=== PATIENT | female | born 1930 | race Two or more races ===

== ENCOUNTER 2017-01-22 10:36 | Outpatient (CLI) | payer MEDICARE ==
--- NOTE | 2017-01-22 13:11 | Mammography Report ---
DIGITAL DIAGNOSTIC BILATERAL MAMMOGRAM: 01/22/2017 CLINICAL INDICATION: History of right breast cancer status post lumpectomy and radiation therapy. TECHNIQUE: Bilateral CC and MLO, right true lateral and spot magnification views. COMPARISON: 02/02/2016, 01/05/2016, 12/15/2011, 12/07/2010, 04/07/2009, 03/17/2008, 03/04/2008. FINDINGS: The breasts again demonstrate heterogeneously dense fibroglandular parenchyma bilaterally. Postoperative and post-treatment changes are present in the right breast. Coarse and punctate, typ ically benign calcifications are present. No suspicious masses, clustered microcalcifications, or re gions of architectural distortion are identified. IMPRESSION: BENIGN FINDINGS. RECOMMENDATION: Routine annual screening unless otherwise clinically indicated. BIRADS CATEGORY 2 - BENIGN FINDINGS. STANDARD QUALIFYING STATEMENTS 1. This examination was reviewed with the aid of Computer-Aided Detection (CAD). 2. A negative or benign imaging report should not delay biopsy if clinically suspicious findings are present. Consider surgical consultation if warranted. More than 5% of cancers are not identified by i maging. 3. Dense breasts may obscure an underlying neoplasm. JOB #: [id number] EXT JOB #:[id number]
== END 2017-01-22 10:37 | disposition home or self-care (01) ==
LOC: DI 10:36
PROVIDERS: ATTEND Internal Medicine Hematology & Oncology
DX: C50.811 Malignant neoplasm of overlapping sites of right female breast (principal)
CPT/HCPCS: 77066

== ENCOUNTER 2017-08-15 11:56 | Outpatient (CLI) | payer MEDICARE ==
--- NOTE | 2017-08-16 18:55 | Mammography Report ---
DATE OF SERVICE: 08/15/2017 DIGITAL DIAGNOSTIC RIGHT MAMMOGRAM: 08/15/2017 CLINICAL INDICATION: Follow up status post lumpectomy and radiation therapy for right breast cancer. COMPARISON: 01/22/2017, 02/02/2016, 01/05/2016, 12/15/2011, 12/07/2010. TECHNIQUE: Right CC, MLO, true lateral, spot magnification views. FINDINGS The right breast again demonstrates heterogeneously dense fibroglandular parenchyma. Punctate, typically benign calcifications are present. Postoperative and posttreatment changes are noted in the right outer central breast. No suspicious masses, clustered microcalcifications, or regions of architectural distortion are identified. IMPRESSION: Probable benign postoperative and posttreatment changes. RECOMMENDATIONS: Diagnostic bilateral mammogram in 6 months. BIRADS category 3 - Probable benign findings. STANDARD QUALIFYING STATEMENTS 1. This examination was reviewed with the aid of Computed-Aided Detection (CAD) . 2. A negative or benign imaging report should not delay biopsy if clinically suspicious findings are present. Consider surgical consultation if warranted. More than 5% of cancers are not identified by imaging. 3. Dense breasts may obscure an underlying neoplasm. TD: 08/15/2017 18:30 MTDBri
== END 2017-08-15 11:57 | disposition home or self-care (01) ==
LOC: DI 11:56
PROVIDERS: ATTEND Physician Assistant
DX: Z85.3 Personal history of malignant neoplasm of breast (principal)

== ENCOUNTER 2018-07-03 13:18 | Outpatient (CLI) | payer MEDICARE ==
--- NOTE | 2018-07-03 16:29 | Mammography Report ---
Reason: MALIGNANT NEOPLASM OF UNSP SITE OF RIGHT FEMALE BR Procedure Date: 07/03/2018 Accession Number: [id number] / [id number] Procedure: HUGO - Diagnostic Dig Bilat CPT Code: FULL RESULT: EXAM: Diagnostic Dig Bilat DATE: 07/03/2018 2:59 PM CLINICAL HISTORY: Post lumpectomy surveillance right breast screening left breast. Prior history of treated right breast cancer in 2016. TECHNIQUE: Bilateral CC and MLO views were obtained. COMPARISON: 08/15/2017 through 01/05/2016. FINDINGS: The breasts demonstrate heterogeneously dense fibroglandular parenchyma bilaterally. Right breast: There are stable operative changes status post lumpectomy from the upper central breast. There is stable overlying skin deformity. There are no suspicious masses, calcifications or areas of nonoperative distortion. Left breast: There are no suspicious masses, calcifications or areas of distortion. IMPRESSION: Benign findings RECOMMENDATION: Diagnostic right breast mammogram in 1 year for post lumpectomy surveillance to coincide with contralateral screening. BI-RADS CATEGORY 2: Benign findings STANDARD QUALIFYING STATEMENTS: 1. This examination was not reviewed with the aid of Computer-Aided Detection (CAD). 2. A negative or benign imaging report should not preclude biopsy if clinically suspicious findings are present. 3. Dense breasts may obscure an underlying neoplasm. 4. This examination was reviewed with the aid of 3D breast imaging (tomosynthesis).
== END 2018-07-03 13:19 | disposition home or self-care (01) ==
LOC: DI 13:18
PROVIDERS: ATTEND Physician Assistant
DX: Z08 Encounter for follow-up examination after completed treatment for malignant neoplasm (principal); Z85.3 Personal history of malignant neoplasm of breast
CPT/HCPCS: 77066

== ENCOUNTER 2018-09-19 14:11 | Outpatient (CLI) | payer MEDICARE ==
--- NOTE | 2018-09-20 09:54 | XRAY Report ---
Reason: PAIN IN RIGHT HIP Procedure Date: 09/19/2018 Accession Number: [id number] / [id number] Procedure: XR - Hips 2V BILAT CPT Code: FULL RESULT: EXAM: BILATERAL HIP RADIOGRAPHY EXAM DATE: 09/19/2018 03:49 PM. CLINICAL HISTORY: Pain in right hip. COMPARISON: XR HIP UNILAT MIN 2 VIEW 09/17/2008 9:55 AM. TECHNIQUE: AP pelvis and 1 view each. FINDINGS: Bones: Normal. No fractures or bone lesion. Degenerative changes are seen about the pubic symphysis. Right Hip: No dislocation. The hip joint space is moderately narrowed, increased compared to 2008. Left Hip: No dislocation. The hip joint space is moderately narrowed, progressed compared to 2008. Soft Tissues: Normal. No soft tissue swelling. IMPRESSION: Moderate bilateral hip joint space narrowing, progression from 2008. RADIA
== END 2018-09-19 14:12 | disposition home or self-care (01) ==
LOC: DI 14:11
PROVIDERS: ATTEND Internal Medicine
DX: M16.0 Bilateral primary osteoarthritis of hip (principal)
CPT/HCPCS: 73521

== ENCOUNTER 2019-07-09 10:17 | Outpatient (CLI) | payer MEDICARE ==
--- NOTE | 2019-07-09 14:57 | Mammography Report ---
Reason: RT BREAST CA Procedure Date: 07/09/2019 Accession Number: [id number] / [id number] Procedure: HUGO - Diagnostic Dig Bilat CPT Code: Final Report FULL RESULT: EXAM: Diagnostic Dig Bilat DATE: 07/09/2019 11:22 AM CLINICAL HISTORY: Diagnostic examination. Personal history of right breast cancer status post lumpectomy in October 2015. TECHNIQUE: (B) - Bilateral CC and MLO views were obtained. COMPARISON: 07/03/2018 through 02/02/2016. PARENCHYMAL PATTERN: (D) - The breast(s) demonstrate(s) heterogeneously dense fibroglandular parenchyma. FINDINGS: Probably benign right breast postsurgical changes are once again demonstrated without concerning interval change. There are no suspicious masses, calcifications, or areas of distortion. IMPRESSION: Probably Benign. BI-RADS category 3. RECOMMENDATION: (ANNUAL) - Recommend routine annual screening mammography. BI-RADS CATEGORY: (3) - Probably Benign. STANDARD QUALIFYING STATEMENTS: 1. This examination was not reviewed with the aid of Computer-Aided Detection (CAD). 2. A negative or benign imaging report should not preclude biopsy if clinically suspicious findings are present. 3. Dense breasts may obscure an underlying neoplasm. 4. This examination was reviewed with the aid of 3D breast imaging (tomosynthesis).
== END 2019-07-09 10:18 | disposition home or self-care (01) ==
LOC: DI 10:17
PROVIDERS: ATTEND Internal Medicine
DX: C50.911 Malignant neoplasm of unspecified site of right female breast (principal)
CPT/HCPCS: 77066

== ENCOUNTER 2019-07-29 11:38 | Outpatient (CLI) | payer MEDICARE ==
--- NOTE | 2019-07-30 08:59 | XRAY Report ---
Reason: R HIP Procedure Date: 07/29/2019 Accession Number: [id number] / [id number] Procedure: XRS - Hip w/Pelvis 2-3V RT CPT Code: Final Report FULL RESULT: EXAM: RIGHT HIP RADIOGRAPHY EXAM DATE: 07/29/2019 12:10 PM. CLINICAL HISTORY: Fall 1 week ago with right hip pain. COMPARISON: HIP BILAT 09/19/2018 3:48 PM. TECHNIQUE: 2 views. FINDINGS: Bones: No fracture or aggressive osseous lesion detected. Joints: There are bilateral degenerative changes of the femoral acetabular joint with mild joint space narrowing and marginal osteophytosis, relatively symmetric. Sacroiliac joints and pubic symphysis are within normal limits, mild degenerative changes are noted. No dislocation. Soft Tissues: Normal. No soft tissue swelling. IMPRESSION: Degenerative changes. RADIA
--- NOTE | 2019-07-30 09:00 | XRAY Report ---
Reason: RIGHT LEG AND HIP PAIN Procedure Date: 07/29/2019 Accession Number: [id number] / [id number] Procedure: XRS - Femur 2V RT CPT Code: Final Report FULL RESULT: EXAM: RIGHT FEMUR RADIOGRAPHY EXAM DATE: 07/29/2019 12:09 PM. CLINICAL HISTORY: Right leg and hip pain. COMPARISON: None. TECHNIQUE: 2 views. FINDINGS: Bones: No acute fracture is detected. Joints: Endstage degenerative changes of the visualized right knee including loose bodies. Near complete loss of joint space especially in the medial weightbearing compartment. Soft Tissues: Vascular calcifications. 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 No acute fracture. RADIA
== END 2019-07-29 11:39 | disposition home or self-care (01) ==
LOC: DI.S 11:38
PROVIDERS: ATTEND Internal Medicine
DX: C50.911 Malignant neoplasm of unspecified site of right female breast (principal); M16.0 Bilateral primary osteoarthritis of hip; M17.11 Unilateral primary osteoarthritis, right knee

== ENCOUNTER 2020-09-28 09:59 | Outpatient (CLI) | payer MEDICARE ==
--- NOTE | 2020-09-29 12:45 | Mammography Report ---
BILATERAL DIGITAL DIAGNOSTIC MAMMOGRAM 3D/2D: 09/28/2020 CLINICAL: Routine screening. Personal history of right breast cancer. Comparison is made to exams dated: 07/09/2019 mammogram, 07/03/2018 mammogram, 08/15/2017 mammogram, 01/22/2017 mammogram, 02/29/2016 breast MRI, and 02/02/2016 mammogram - [facility]. T he tissue of both breasts is heterogeneously dense. This may lower the sensitivity of mammography. There is a new benign dystrophic calcification in the right breast at 11 o'clock middle depth at the lumpectomy site. No other significant masses, calcifications, or other findings are seen in either breast. IMPRESSION: BENIGN There is no mammographic evidence of malignancy. New dystrophic calcifications at the right breast lumpectomy in the interval since June 2019 are benign. Lumpectomy site is otherwise stable. A 1 year mammogram is recommended. Exam findings were conveyed to the patient. Patient is advised to monitor for significant change. This exam was interpreted at Station ID: [id number]. NOTE: For mammograms, a report in lay terms will be sent to the patient. Approximately 15% of breast malignancies will not be visualized mammographically. In the management of a palpable breast mass, a negative mammogram must not discourage biopsy of a clinically suspicious lesion. Electronically Signed By: Mark Anthony Gray M.D. slc/:09/28/2020 11:51:41 ACR BI-RADS Category 2: Benign Finding(s) 3342F PARENCHYMAL PATTERN: (D) - The breast(s) demonstrate(s) heterogeneously dense fibroglandular erika palomo. BI-RADS CATEGORY: (2) - 2 RECOMMENDATION: (ANNUAL) - Recommend routine annual screening mammography. [id number] 1 year screening LATERALITY: (B)
== END 2020-09-28 10:00 | disposition home or self-care (01) ==
LOC: DI 09:59
PROVIDERS: ATTEND Internal Medicine
DX: Z12.39 Encounter for other screening for malignant neoplasm of breast (principal); Z08 Encounter for follow-up examination after completed treatment for malignant neoplasm; Z85.3 Personal history of malignant neoplasm of breast

== ENCOUNTER 2021-03-22 09:40 | Observation (INO) | payer MEDICARE ==
[2021-03-22] MEDS ORDERED: SODIUM CHLORIDE 0.9% 1,000 ML IV STA (10:27)
[2021-03-22 11:01] LABS: BASOPHILS % (AUTO) 0.4 %; EOSINOPHILS # (AUTO) 0.1 10^3/uL (0.0-0.7); EOSINOPHILS % (AUTO) 1.7 %; HCT - HEMATOCRIT 39.5 % (37.0-47.0); HGB - HEMOGLOBIN 13.6 g/dL (12.0-16.0); LYMPHOCYTES # (AUTO) 1.5 10^3/uL (1.5-3.5); LYMPHOCYTES % (AUTO) 20.1 %; MEAN CORPUSCULAR HGB CONC 34.4 g/dL (32.0-36.0); MEAN PLATELET VOLUME 9.6 fL (7.9-10.8); MONOCYTES # (AUTO) 0.7 10^3/uL (0.0-1.0); NEUTROPHILS % (AUTO) 67.5 %; PLT - PLATELET COUNT 293 10^3/uL (130-450); RED BLOOD COUNT 4.39 10^6/uL (4.20-5.40); RED CELL DISTRIBUTION WIDTH 12.6 % (12.0-15.0); WHITE BLOOD COUNT 7.4 x10^3/uL (4.8-10.8)
[2021-03-22 11:06] LABS: INR 1.1 (0.8-1.2); PT - PROTHROMBIN TIME 12.4 secs (9.9-12.6)
[2021-03-22 11:14] LABS: ALBUMIN 3.3 g/dL (3.2-5.5); CALCIUM 8.8 mg/dL (8.5-10.3); CREATININE 0.8 mg/dL (0.4-1.0); POTASSIUM 3.7 mmol/L (3.5-5.0); TOTAL PROTEIN 6.5 g/dL (6.7-8.2)
--- NOTE | 2021-03-22 13:43 | ED Physician Documentation ---
PD HPI GI BLEED - Stated complaint Stated Complaint: HEMATURIA - Chief complaint Chief Complaint: Abd Pain - History obtained from History obtained from: Patient, Family - Additional information Additional information: Patient comes emergency department chief complaint of bloody stools. She states this started last night and that at that time, she had the urge to defecate but mostly, noticed that a large amount of dark red blood and clots came out. Patient states this happened 2 more times overnight and that she also had an episode here in the emergency department. She states she has felt a little bit lightheaded and dizzy, but has not fainted. She denies any abdominal pain. She is not on anticoagulants. states this happened once before, a little over a year ago, and that the patient was admitted at [facility] for colonoscopy. She was found to have polyps, and patient's does not remember if they found anything else on scope. The patient has not had any trouble with GI bleeding since. She denies nausea or vomiting. No easy bruising or bleeding anywhere else. No other complaints at this time. Review of Systems Ten Systems: 10 systems reviewed and negative Constitutional: reports: Reviewed and negative Eyes: reports: Reviewed and negative Ears: reports: Reviewed and negative Nose: reports: Reviewed and negative Throat: reports: Reviewed and negative Cardiac: reports: Reviewed and negative Respiratory: reports: Reviewed and negative GI: reports: Bloody / black stool : reports: Reviewed and negative Skin: reports: Reviewed and negative Musculoskeletal: reports: Reviewed and negative Neurologic: reports: Reviewed and negative Psychiatric: reports: Reviewed and negative Endocrine: reports: Reviewed and negative Immunocompromised: reports: Reviewed and negative PD PAST MEDICAL HISTORY - Past Medical History Past Medical History: Yes Cardiovascular: Hypertension, High cholesterol Respiratory: None Endocrine/Autoimmune: Type 2 diabetes, HyPERthyroidism GI: None : None HEENT: None Psych: None Musculoskeletal: Osteoarthritis, Rheumatoid arthritis Derm: None - Past Surgical History Past Surgical History: Yes General: Colonoscopy Ortho: Carpal Tunnel surgery, 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 - Present Medications Home Medications: Ambulatory Orders Medication Instructions Recorded Confirmed Cholecalciferol (Vitamin D3) 5,000 unit PO BID 11/19/13 11/17/20 [Vitamin D3] Aspirin 81 mg PO DAILY 07/24/18 11/17/20 Atorvastatin [Lipitor] 0.5 tab ORAL DAILY 07/24/18 11/17/20 Clopidogrel [Plavix] 1 tab ORAL DAILY 07/24/18 11/17/20 Losartan [Cozaar] 2 tab ORAL DAILY 07/24/18 11/17/20 Metoprolol Tartrate 1 tab ORAL DAILY 07/24/18 11/17/20 - Allergies Allergies/Adverse Reactions: Allergies Allergy/AdvReac Type Severity Reaction Status Date / Time No Known Drug Allergies Allergy Verified 03/22/21 10:27 - Social History Does the pt smoke?: No Smoking Status: Never smoker Does the pt drink ETOH?: No Does the pt have substance abuse?: No - Immunizations Immunizations are current?: Yes - POLST Patient has POLST: No PD ED PE NORMAL - Vitals Vital signs reviewed: Yes - General General: Alert and oriented X 3, No acute distress - HEENT HEENT: Atraumatic, PERRL, EOMI, Moist mucous membranes - Neck Neck: Supple, no meningeal sign - Cardiac Cardiac: RRR, No murmur - Respiratory Respiratory: No respiratory distress, Clear bilaterally - Abdomen Abdomen: Soft, Non tender, Non distended - Rectal Rectal: Other (Gross blood; no mass or tenderness.) - Derm Derm: Warm and dry - Extremities Extremities: No deformity - Neuro Neuro: Alert and oriented X 3 - Psych Psych: Normal mood, Normal affect Results - Vitals Vitals: Vital Signs - 24 hr 03/22/21 03/22/21 10:21 14:07 Temperature 36.7 C 36.5 C Heart Rate 68 64 Respiratory 18 16 Rate Blood Pressure 131/75 H 133/91 H O2 Saturation 98 96 Oxygen O2 Source Room air - Labs Labs: Laboratory Tests 03/22/21 03/22/21 03/22/21 10:40 10:40 10:40 WBC 7.4 RBC 4.39 Hgb 13.6 Hct 39.5 MCV 90.0 MCH 31.0 MCHC 34.4 RDW 12.6 Plt Count 293 MPV 9.6 Neut # (Auto) 5.0 Lymph # (Auto) 1.5 [place] # (Auto) 0.7 Eos # (Auto) 0.1 Baso # (Auto) 0.0 Absolute Nucleated RBC 0.00 Nucleated RBC % 0.0 PT 12.4 INR 1.1 Sodium 135 Potassium 3.7 Chloride 99 L Carbon Dioxide 27 Anion Gap 9.0 BUN 20 Creatinine 0.8 Estimated GFR (MDRD) 68 L Glucose 213 H Calcium 8.8 Total Bilirubin 1.0 AST 18 ALT 17 Alkaline Phosphatase 84 Total Protein 6.5 L Albumin 3.3 Globulin 3.2 Albumin/Globulin Ratio 1.0 Lipase 27 Blood Type Antibody Screen 03/22/21 10:40 WBC RBC Hgb Hct MCV MCH MCHC RDW Plt Count MPV Neut # (Auto) Lymph # (Auto) [place] # (Auto) Eos # (Auto) Baso # (Auto) Absolute Nucleated RBC Nucleated RBC % PT INR Sodium Potassium Chloride Carbon Dioxide Anion Gap BUN Creatinine Estimated GFR (MDRD) Glucose Calcium Total Bilirubin AST ALT Alkaline Phosphatase Total Protein Albumin Globulin Albumin/Globulin Ratio Lipase Blood Type O POSITIVE Antibody Screen NEGATIVE PD MEDICAL DECISION MAKING - ED course Complexity details: reviewed old records, reviewed results, re-evaluated patient, considered differential, d/w patient, d/w family ED course: Patient was worked up with labs in the emergency department, which demonstrated a hemoglobin of 13.6. She was hemodynamically stable and without complaints of abdominal pain. I was concerned about the degree of bleeding she had had, as I was able to view both her output here in the emergency department and a picture of her bowel movement at home with the clots and copious red blood. I ordered a type and screen on the patient and spoke with Dr. Miller, the surgeon on-call. We discussed that under ideal circumstances, the patient may have access to further resources at [facility] in regard to her GI bleeding; however, given that [facility] is boarding 39 patients and has not yet been able to except the patient we have had on their waiting list for the past 18 hours, it is highly unlikely that the patient would be able to be transferred. As such, it is in her best interest to be admitted here instead for serial H&H's, transfusion if necessary, and surgical consult. I have spoke with Dr. Min, who is on-call for hospitalist service, and he has agreed to admit the patient to his service. Patient is open to transfusion if needed. Departure - Departure Disposition: ED Place in Observation Clinical Impression: Lower GI bleed Condition: Serious
[2021-03-22] MEDS ORDERED: ACETAMINOPHEN 325 MG TABLET PO PRN (14:04)
[2021-03-22] MEDS ORDERED: SODIUM CHLORIDE FLUSH 0.9% 10 ML SYRINGE IVP PRN (14:04)
[2021-03-22] MEDS ORDERED: ONDANSETRON 4 MG/2 ML VIAL IVP PRN (14:04)
--- NOTE | 2021-03-22 14:15 | HISTORY & PHYSICAL EXAMINATION ---
Chief Complaint - Chief Complaint Chief Complaint: GI bleeding History of Present Illness - Admitted From Admitted From:: medical floor - History Obtained From Records Reviewed: [facility] History obtained from: pt Exam Limitations: no - History of Present Illness HPI Comment/Other: This is a 89-years old female with a past medical history significant for hypertension, hyperlipidemia, Diabetes, hyperthyroidism, osteoarthritis, rheumatoid arthritis Who present to ER complain of GI bleeding, and bloody stools. Patient will report from last night she continued to have total about 8 times of bloody stools. stool was dark and reddish. She denies abdominal pain, nausea, vomiting, diarrhea. she denies fainting. But she complaint of lightheaded, dizziness. She had hemoglobin 13.6 on today. Patient reported she had similar symptoms more than a year ago when she was in the [place]. She had a colonoscopy which show polyps. pt denies to take baby aspirin, Plavix. and not on anticoagulation medication. ER already talked with GI surgeon. Given above medical information, pt was consulted with medial team for admission. 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 Her mother at age 58 from heart problem. She had her 2 children and she live at [facility] Social History Notes: Patient denies any history of cigarette smoking, alcohol, drug abuse - POLST Patient has POLST: No Meds/Allgy - Home Medications Home Medications: Ambulatory Orders Medication Instructions Recorded Confirmed Cholecalciferol (Vitamin D3) 5,000 unit PO BID 11/19/13 11/17/20 [Vitamin D3] Aspirin 81 mg PO DAILY 07/24/18 11/17/20 Atorvastatin [Lipitor] 0.5 tab ORAL DAILY 07/24/18 11/17/20 Clopidogrel [Plavix] 1 tab ORAL DAILY 07/24/18 11/17/20 Losartan [Cozaar] 2 tab ORAL DAILY 07/24/18 11/17/20 Metoprolol Tartrate 1 tab ORAL DAILY 07/24/18 11/17/20 - Allergies Allergies/Adverse Reactions: Allergies Allergy/AdvReac Type Severity Reaction Status Date / Time No Known Drug Allergies Allergy Verified 03/22/21 10:27 Review of Systems - Constitutional Constitutional: denies: Fever, Chills, Weakness - Eyes Eyes: denies: Pain, Field loss, Vision loss - Ears, Nose & Throat Ears, Nose & Throat: denies: Ear pain, Nosebleeds, Bleeding gums - Cardiovascular Cariovascular: reports: Lightheadedness. denies: Palpitations, Chest pain, Syncope, Exertional dyspnea - Respiratory Respiratory: denies: Cough, Wheezing, SOB at rest, SOB with exertion - Gastrointestinal Gastrointestinal: reports: Rectal bleeding, Black stools, Bloody stools. denies: Abdominal pain, Constipation, Diarrhea, Nausea, Vomiting - Genitourinary Genitourinary: denies: Dysuria - Musculoskeletal Musculoskeletal: denies: Muscle pain - Integumentary Integumentary: denies: Rash, Lesions - Neurological Neurological: reports: Dizziness. denies: General weakness, Focal weakness, Headache, Numbness, Abnormal gait, Seizures, Incoordination, Slurred speech - Psychiatric Psychiatric: denies: Depression - Endocrine Endocrine: denies: Polyuria - Hematologic/Lymphatic Hematologic/Lymphatic: denies: Bruising, Blood clots Prior Level of Functionality: Patient report she walk with a walker Exam - Vital Signs Vital Signs: Vital Signs x48h Temp Pulse Resp BP Pulse Ox 03/22/21 14:07 36.5 C 64 16 133/91 H 96 03/22/21 10:21 36.7 C 68 18 131/75 H 98 - Physical Exam General Appearance: positive: No acute distress, Alert. negative: Lethargic Eyes Bilateral: positive: Normal inspection, PERRL, No lid inflammation ENT: positive: ENT inspection nml, No signs of dehydration. negative: Purulent nasal drainage Neck: positive: Nml inspection, Trachea midline. negative: Thyromegaly, Tracheal deviation Respiratory: positive: Chest non-tender, No respiratory distress, Breath sounds nml. negative: Wheezes, Rales Cardiovascular: positive: Regular rate & rhythm, No murmur. negative: Tachycardia, Bradycardia, Systolic murmur, Diastolic murmur Peripheral Pulses: positive: 2+ Abdomen: positive: Non-tender, Nml bowel sounds, No distention. negative: Tenderness, Guarding, Rebound Back: positive: Nml inspection Skin: positive: Color nml, Warm, Dry. negative: Cyanosis, Diaphoresis Extremities: positive: Non-tender, Full ROM, Nml appearance. negative: Calf tenderness Neurologic/Psychiatric: positive: Oriented x3, Motor nml, Sensation nml, Mood /affect nml. negative: Weakness, Sensory loss, Facial droop, Slurred/abnml speech, Depressed mood/affect Sepsis Event Note (H) - Evaluation Current Stage of Sepsis: Ruled out Conclusion/Plan - Problem List (1) Lower GI bleed Conclusion/Plan: Patient report reddish bloody stool. she complain of dizziness. but she denies abdominal pain. She had a hemoglobin 13.6. She did not take any blood thinners including baby aspirin per patient report. Patient had colonoscopy more than a year ago done by [facility] which she was found polyps. We will ask [facility] for medical record. We will have H&H to monitor hemoglobin, we already speak with surgeon for consultation. (2) Diabetes Conclusion/Plan: Patient has a history of diabetic, she take insulin in the home, we will resume slide scale, start with hypoglycemia protocol, Check A1c (3) HTN (hypertension) Conclusion/Plan: Patient blood pressure is stable, we will resume patient home medication after confirmed By pharmacy (4) HLD (hyperlipidemia) Conclusion/Plan: Patient has a history of hyperlipidemia, we will resume patient home meds after confirmed - Lab Results Fish Bones: 03/22/21 10:40 03/22/21 10:40 Core Measures - Anticipated LOS I expect patient to be DC'd or transferred within 96 hours.: Yes - DVT/VTE - Prophylaxis VTE/DVT Device ordered at admit?: Yes VTE/DVT Prophylaxis med ordered at admit?: Yes
[2021-03-22] MEDS ORDERED: PANTOPRAZOLE 40 MG VIAL IVP SCH ×3 (15:00→21:00)
[2021-03-22 17:09] LABS: HCT - HEMATOCRIT 38.1 % (37.0-47.0); HGB - HEMOGLOBIN 12.8 g/dL (12.0-16.0)
[2021-03-22 17:11] LABS: CORONAVIRUS 229E-RESP PCR NOT DETECTED; CORONAVIRUS HKU1-RESP PCR NOT DETECTED; CORONAVIRUS NL63-RESP PCR NOT DETECTED; CORONAVIRUS OC43-RESP PCR NOT DETECTED; HUMAN METAPNEUMOVIRUS NOT DETECTED; INFLUENZA A- RESP PCR PANEL NOT DETECTED; INFLUENZA B - RESP PCR PANEL NOT DETECTED; PARAINFLUENZA VIRUS 1 NOT DETECTED; PARAINFLUENZA VIRUS 2 NOT DETECTED; RHINOVIRUS/ENTEROVIRUS NOT DETECTED; SARS-CoV-2 -RESP PCR PANEL NOT DETECTED
[2021-03-22 17:12] LABS: B. PARAPERTUSSIS- RESP PCR PAN NOT DETECTED; B. PERTUSSIS- RESP PCR PANEL NOT DETECTED; C. PNEUMONIAE- RESP PCR PANEL NOT DETECTED; M. PNEUMONIAE- RESP PCR PANEL NOT DETECTED; PARAINFLUENZA VIRUS 3 NOT DETECTED; PARAINFLUENZA VIRUS 4 NOT DETECTED; RSV- RESP PCR PANEL NOT DETECTED
[2021-03-22] MEDS: INSULIN ASPART 300 UNIT/3 ML PEN SUBQ SCH ×2 (18:27→21:02)
[2021-03-22] MEDS: PANTOPRAZOLE 40 MG VIAL IVP SCH (18:29)
[2021-03-22] MEDS: SODIUM CHLORIDE FLUSH 0.9% 10 ML SYRINGE IVP SCH (18:29)
[2021-03-22] MEDS: SODIUM CHLORIDE 0.9% 1,000 ML IV SCH (18:30)
[2021-03-22 20:39] LABS: ESTIMATED AVERAGE GLUCOSE 160 mg/dL (70-100); HEMOGLOBIN A1c% 7.2 % (4.27-6.07)
[2021-03-22 23:12] LABS: HCT - HEMATOCRIT 30.3 % (37.0-47.0); HGB - HEMOGLOBIN 10.4 g/dL (12.0-16.0)
[2021-03-23] MEDS: SODIUM CHLORIDE FLUSH 0.9% 10 ML SYRINGE IVP SCH ×3 (01:38→16:53)
[2021-03-23 05:40] LABS: BASOPHILS % (AUTO) 0.3 %; EOSINOPHILS # (AUTO) 0.2 10^3/uL (0.0-0.7); EOSINOPHILS % (AUTO) 2.4 %; HCT - HEMATOCRIT 28.7 % (37.0-47.0); HGB - HEMOGLOBIN 9.6 g/dL (12.0-16.0); LYMPHOCYTES # (AUTO) 1.9 10^3/uL (1.5-3.5); LYMPHOCYTES % (AUTO) 25.8 %; MEAN CORPUSCULAR HEMOGLOBIN 30.7 pg (27.0-31.0); MEAN CORPUSCULAR HGB CONC 33.4 g/dL (32.0-36.0); MEAN CORPUSCULAR VOLUME 91.7 fL (81.0-99.0); MEAN PLATELET VOLUME 9.5 fL (7.9-10.8); MONOCYTES # (AUTO) 0.7 10^3/uL (0.0-1.0); MONOCYTES % (AUTO) 8.8 %; NEUTROPHILS # (AUTO) 4.6 10^3/uL (1.5-6.6); NEUTROPHILS % (AUTO) 62.2 %; PLT - PLATELET COUNT 224 10^3/uL (130-450); RED BLOOD COUNT 3.13 10^6/uL (4.20-5.40); WHITE BLOOD COUNT 7.4 x10^3/uL (4.8-10.8)
[2021-03-23 05:48] LABS: CALCIUM 7.7 mg/dL (8.5-10.3); CREATININE 0.5 mg/dL (0.4-1.0); POTASSIUM 3.3 mmol/L (3.5-5.0)
[2021-03-23] MEDS: SODIUM CHLORIDE 0.9% 1,000 ML IV SCH (06:14)
[2021-03-23] MEDS ORDERED: SODIUM CHLORIDE 0.9% 1,000 ML IV SCH (08:00)
[2021-03-23] MEDS ORDERED: INSULIN REGULAR HUMAN 300 UNIT/3 ML VIAL SUBQ SCH (08:00)
[2021-03-23] MEDS: PANTOPRAZOLE 40 MG VIAL IVP SCH (08:08)
[2021-03-23] MEDS: POTASSIUM CHLOR 10 MEQ/100 ML 10 MEQ/100 ML BAG IV SCH ×4 (08:11→11:45)
[2021-03-23 08:22] LABS: BILIRUBIN,URINE NEGATIVE (NEGATIVE); GLUCOSE, URINE (UA) NEGATIVE (NEGATIVE); KETONES,URINE (UA) 15 mg/dL (NEGATIVE); LEUKOCYTE ESTERASE, URINE NEGATIVE (NEGATIVE); NITRITE,URINE NEGATIVE (NEGATIVE); OCCULT BLOOD,URINE TRACE-LYSE (NEGATIVE); PROTEIN,URINE NEGATIVE (NEGATIVE); UROBILINOGEN,URINE 1 (NORMAL) E.U./dL (NORMAL)
[2021-03-23 08:41] LABS: BACTERIA,URINE Rare /HPF (None Seen); CLARITY,URINE CLEAR (CLEAR); RBC,URINE None Seen /HPF (0-5); SQUAMOUS EPITHELIAL CELL,UR FEW Squamous (<= Few); WBC,URINE 0-3 /HPF (0-5)
[2021-03-23 11:28] LABS: HCT - HEMATOCRIT 29.8 % (37.0-47.0); HGB - HEMOGLOBIN 10.1 g/dL (12.0-16.0)
[2021-03-23] MEDS: INSULIN ASPART 300 UNIT/3 ML PEN SUBQ SCH ×3 (11:48→21:04)
--- NOTE | 2021-03-23 12:57 | PROVIDER PROGRESS NOTE ---
Assessment/Plan - Problem List (1) Lower GI bleed Assessment/Plan: 03/23 Patient reported she has no GI bleed but Nurse reported patient still had GI bleeding. But Her hemoglobin is stable now. We will continue H&H to monitor hemoglobin, we will call general surgeon to determine whether or not continue to do colonoscopy on tomorrow. Patient report reddish bloody stool. she complain of dizziness. but she denies abdominal pain. She had a hemoglobin 13.6. She did not take any blood thinners including baby aspirin per patient report. Patient had colonoscopy more than a year ago done by [facility] which she was found polyps. We will ask [place] for medical record. We will have H&H to monitor hemoglobin, we already speak with surgeon for consultation. (2) Diabetes Conclusion/Plan: Patient has a history of diabetic, she take insulin in the home, we will resume slide scale, start with hypoglycemia protocol, Check A1c (3) HTN (hypertension) Conclusion/Plan: Patient blood pressure is stable, we will resume patient home medication after confirmed By pharmacy (4) HLD (hyperlipidemia) Conclusion/Plan: Patient has a history of hyperlipidemia, we will resume patient home meds after confirmed - Current Meds Current Meds: Current Medications Generic Name Dose Route Start Last Admin Trade Name Freq PRN Reason Stop Dose Admin Insulin Aspart 1 - 9 unit 03/23/21 12:00 03/23/21 11:48 Insulin Aspart 300 Unit/3 Ml Pen SUBQ 5 unit 0800,1200,1700,2100 PATRICIO Administration Protocol Pantoprazole Sodium 40 mg 03/22/21 17:00 03/23/21 08:08 Pantoprazole 40 Mg Vial IVP 40 mg DAILY PATRICIO Administration Sodium Chloride 10 ml 03/22/21 17:00 03/23/21 08:09 Sodium Chloride Flush 0.9% 10 Ml Syringe IVP 10 ml 0100,0900,1700 PATRICIO Administration - Lab Result Fish Bone Diagrams: 03/23/21 11:23 03/23/21 05:23 - Additional Planning My Orders: My Active Orders 03/22/21 14:04 Activity Orders [RC] Q2HR IO [RC] IOSHIFT Initiate Bowel Care Protocol [RC] .protocol Initiate Line Care Protocol [RC] QSHIFT Initiate Personal Care Protoco [RC] .protocol Vital Signs [RC] 0800,1600,0000 Acetaminophen [Tylenol] 650 mg PO Q4HR PRN Ondansetron Inj [Zofran Inj] 4 mg IVP Q6HR PRN Sodium Chloride Flush 0.9% [Normal Saline Flush 0.9%] 10 ml IVP PRN PRN Code Status [OTHERS] Routine Condition of Patient [OTHERS] Routine DVT Prophylaxis [OTHERS] Routine 03/22/21 14:06 IV Insert [RC] .ONCE 03/22/21 14:08 SCDs [RC] QSHIFT 03/22/21 14:09 General Surgery Consult [CONS] Routine 03/22/21 16:08 Initiate Hypoglycemia Protocol [RC] .protocol 03/22/21 17:00 Pantoprazole [Protonix] 40 mg IVP DAILY Sodium Chloride Flush 0.9% [Normal Saline Flush 0.9%] 10 ml IVP 0100,0900,1700 03/23/21 Lunch Clear Liquid Diet [DIET] 03/23/21 12:00 Blood Glucose Checks - Eating [RC] 0800,1200,1700,2100 Insulin Aspart [NovoLOG] 1 - 9 unit SUBQ 0800,1200,1700,2100 03/23/21 17:00 H&H [HEMOGLOBIN AND HEMATOCRIT] [HEME] Q6H 03/23/21 18:00 Sodium/Potassium/Mag Sulfates [Suprep Bowel Prep Kit] 177 ml PO 1800,0500 03/23/21 23:00 H&H [HEMOGLOBIN AND HEMATOCRIT] [HEME] Q6H 03/24/21 00:01 NPO except Meds at Midnight [DIET] 03/24/21 01:00 D5.45ns W/20 Meq KCl 1,000 ml IV 83.333 mls/hr 03/24/21 05:00 BMP - BASIC METABOLIC PANEL [CHEM] DAILYLAB CBC - COMP BLD CT W/AUTO DIFF [HEME] DAILYLAB 03/25/21 05:00 BMP - BASIC METABOLIC PANEL [CHEM] DAILYLAB CBC - COMP BLD CT W/AUTO DIFF [HEME] DAILYLAB 03/26/21 05:00 BMP - BASIC METABOLIC PANEL [CHEM] DAILYLAB CBC - COMP BLD CT W/AUTO DIFF [HEME] DAILYLAB Subjective - Subjective Patient Reports: Feeling Better Objective Vital Signs: Vital Signs - 24 hr 03/22/21 03/22/21 03/22/21 14:07 16:13 17:43 Temperature 36.5 C 36.4 C L 36.4 C L Heart Rate 64 70 Heart Rate [ 66 Brachial] Respiratory 16 17 20 Rate Blood Pressure 133/91 H 123/82 H Blood Pressure 158/73 H [Right Brachial artery] O2 Saturation 96 100 100 03/22/21 03/23/21 03/23/21 20:32 00:00 04:35 Temperature 36.4 C L 36.3 C L 36.5 C Heart Rate Heart Rate [ 69 67 74 Brachial] Respiratory 20 16 18 Rate Blood Pressure Blood Pressure 112/79 151/63 H 135/73 H [Right Brachial artery] O2 Saturation 98 96 95 03/23/21 03/23/21 08:03 11:42 Temperature 36.5 C 36.5 C Heart Rate Heart Rate [ 66 91 Brachial] Respiratory 19 18 Rate Blood Pressure Blood Pressure 143/77 H 117/69 [Right Brachial artery] O2 Saturation 98 98 Oxygen O2 Source Room air I&O (Last 24 Hrs): Intake and Output Totals x24h 03/21/21 03/22/21 03/23/21 23:59 23:59 23:59 Intake Total 1586 2295.387 Output Total 140 300 Balance 1446 1995.387 General: Alert, Oriented x3, Cooperative, No acute distress HEENT: Atraumatic Neck: Supple Lymphatic: no adenopathy Neuro: Alert, Non Focal, Oriented Times 3 Cardiovascular: Regular rate, Normal S1, Normal S2 Respiratory: Chest non-tender, No respiratory distress Abdomen: Normal bowel sounds, Soft Extremities: Normal pulses - Results Results: Laboratory Results WBC 7.4 x10^3/uL (4.8-10.8) 03/23/21 05:23 RBC 3.13 10^6/uL (4.20-5.40) L 03/23/21 05:23 Hgb 10.1 g/dL (12.0-16.0) L 03/23/21 11:23 Hct 29.8 % (37.0-47.0) L 03/23/21 11:23 MCV 91.7 fL (81.0-99.0) 03/23/21 05:23 MCH 30.7 pg (27.0-31.0) 03/23/21 05:23 MCHC 33.4 g/dL (32.0-36.0) 03/23/21 05:23 RDW 13.0 % (12.0-15.0) 03/23/21 05:23 Plt Count 224 10^3/uL (130-450) 03/23/21 05:23 MPV 9.5 fL (7.9-10.8) 03/23/21 05:23 Neut # (Auto) 4.6 10^3/uL (1.5-6.6) 03/23/21 05:23 Lymph # (Auto) 1.9 10^3/uL (1.5-3.5) 03/23/21 05:23 [place] # (Auto) 0.7 10^3/uL (0.0-1.0) 03/23/21 05:23 Eos # (Auto) 0.2 10^3/uL (0.0-0.7) 03/23/21 05:23 Baso # (Auto) 0.0 10^3/uL (0.0-0.1) 03/23/21 05:23 Absolute Nucleated RBC 0.00 x10^3/uL 03/23/21 05:23 Nucleated RBC % 0.0 /100WBC 03/23/21 05:23 PT 12.4 secs (9.9-12.6) 03/22/21 10:40 INR 1.1 (0.8-1.2) 03/22/21 10:40 Sodium 138 mmol/L (135-145) 03/23/21 05:23 Potassium 3.3 mmol/L (3.5-5.0) L 03/23/21 05:23 Chloride 107 mmol/L (101-111) 03/23/21 05:23 Carbon Dioxide 25 mmol/L (21-32) 03/23/21 05:23 Anion Gap 6.0 (6-13) 03/23/21 05:23 BUN 19 mg/dL (6-20) 03/23/21 05:23 Creatinine 0.5 mg/dL (0.4-1.0) 03/23/21 05:23 Estimated GFR (MDRD) 116 (>89) 03/23/21 05:23 Glucose 128 mg/dL (70-100) H 03/23/21 05:23 POC Whole Bld Glucose 242 mg/dL (70 - 100) H 03/23/21 11:09 Estimat Average Glucose 160 mg/dL (70-100) H 03/22/21 10:40 Hemoglobin A1c % 7.2 % (4.27-6.07) H 03/22/21 10:40 Calcium 7.7 mg/dL (8.5-10.3) L 03/23/21 05:23 Total Bilirubin 1.0 mg/dL (0.2-1.0) 03/22/21 10:40 AST 18 IU/L (10-42) 03/22/21 10:40 ALT 17 IU/L (10-60) 03/22/21 10:40 Alkaline Phosphatase 84 IU/L (42-121) 03/22/21 10:40 Total Protein 6.5 g/dL (6.7-8.2) L 03/22/21 10:40 Albumin 3.3 g/dL (3.2-5.5) 03/22/21 10:40 Globulin 3.2 g/dL (2.1-4.2) 03/22/21 10:40 Albumin/Globulin Ratio 1.0 (1.0-2.2) 03/22/21 10:40 Lipase 27 U/L (22-51) 03/22/21 10:40 Urine Color YELLOW 03/23/21 08:19 Urine Clarity CLEAR (CLEAR) 03/23/21 08:19 Urine pH 6.0 PH (5.0-7.5) 03/23/21 08:19 Ur Specific [place] 1.025 (1.002-1.030) 03/23/21 08:19 Urine Protein NEGATIVE mg/dL (NEGATIVE) 03/23/21 08:19 Urine Glucose (UA) NEGATIVE mg/dL (NEGATIVE) 03/23/21 08:19 Urine Ketones 15 mg/dL (NEGATIVE) H 03/23/21 08:19 Urine Occult Blood TRACE-LYSE (NEGATIVE) 03/23/21 08:19 Urine Nitrite NEGATIVE (NEGATIVE) 03/23/21 08:19 Urine Bilirubin NEGATIVE (NEGATIVE) 03/23/21 08:19 Urine Urobilinogen 1 (NORMAL) E.U./dL (NORMAL) 03/23/21 08:19 Ur Leukocyte Esterase NEGATIVE (NEGATIVE) 03/23/21 08:19 Urine RBC None Seen /HPF (0-5) 03/23/21 08:19 Urine WBC 0-3 /HPF (0-5) 03/23/21 08:19 Ur Squamous Epith Cells FEW Squamous (<= Few) 03/23/21 08:19 Urine Bacteria Rare /HPF (None Seen) 03/23/21 08:19 Urine Culture Comments NOT INDICATED 03/23/21 08:19 Nasal Adenovirus (PCR) NOT DETECTED 03/22/21 16:05 Nasal B. parapertussis DNA (PCR) NOT DETECTED 03/22/21 16:05 Nasal Coronavir 229E PCR NOT DETECTED 03/22/21 16:05 Nasal Coronavir HKU1 PCR NOT DETECTED 03/22/21 16:05 Nasal Coronavir NL63 PCR NOT DETECTED 03/22/21 16:05 Nasal Coronavir OC43 PCR NOT DETECTED 03/22/21 16:05 Nasal Enterovir/Rhinovir PCR NOT DETECTED 03/22/21 16:05 Nasal Influenza B PCR NOT DETECTED 03/22/21 16:05 Nasal Influenza A PCR NOT DETECTED 03/22/21 16:05 Nasal Parainfluen 1 PCR NOT DETECTED 03/22/21 16:05 Nasal Parainfluen 2 PCR NOT DETECTED 03/22/21 16:05 Nasal Parainfluen 3 PCR NOT DETECTED 03/22/21 16:05 Nasal Parainfluen 4 PCR NOT DETECTED 03/22/21 16:05 Nasal RSV (PCR) NOT DETECTED 03/22/21 16:05 Nasal B.pertussis DNA PCR NOT DETECTED 03/22/21 16:05 Nasal C.pneumoniae (PCR) NOT DETECTED 03/22/21 16:05 George Human Metapneumo PCR NOT DETECTED 03/22/21 16:05 Nasal M.pneumoniae (PCR) NOT DETECTED 03/22/21 16:05 Nasal SARS-CoV-2 (PCR) NOT DETECTED 03/22/21 16:05 Blood Type O POSITIVE 03/22/21 10:40 Antibody Screen NEGATIVE 03/22/21 10:40 Sepsis Event Note (H) - Evaluation Current Stage of Sepsis: Ruled out ABX Reporting Has patient been on IV antibiotics over the past 48 hours?: No Current Medications - Current Medications Current Medications: Active Medications Acetaminophen (Acetaminophen 325 Mg Tablet) 650 mg PO Q4HR PRN PRN Reason: Pain 1 to 4 Potassium Chloride/Dextrose/Sod Cl (D5.45ns W/20 Meq Kcl) 1,000 mls @ 83.333 mls/hr IV .Q12H [facility] Insulin Aspart (Insulin Aspart 300 Unit/3 Ml Pen) 1 - 9 unit SUBQ 0800,1200,1700,2100 [facility]; Protocol Last Admin: 03/23/21 11:48 Dose: 5 unit Documented by: Ondansetron HCl (Ondansetron 4 Mg/2 Ml Vial) 4 mg IVP Q6HR PRN PRN Reason: Nausea / Vomiting Pantoprazole Sodium (Pantoprazole 40 Mg Vial) 40 mg IVP DAILY [facility] Last Admin: 03/23/21 08:08 Dose: 40 mg Documented by: Sodium Chloride (Sodium Chloride Flush 0.9% 10 Ml Syringe) 10 ml IVP PRN PRN PRN Reason: NEEDED PER PROVIDER ORDERS Sodium Chloride (Sodium Chloride Flush 0.9% 10 Ml Syringe) 10 ml IVP 0100,0900,1700 [facility] Last Admin: 03/23/21 08:09 Dose: 10 ml Documented by: Sodium Sulfate/Potass Sulf/Mag Sulf (Sodium/Potassium/Mag Sulfates 354 Ml Prep Kit) 177 ml PO 1800,0500 [facility] Stop: 03/24/21 05:01 Cholecalciferol (Vitamin D3) [Vitamin D3] 5,000 unit PO BID 11/19/13 Aspirin 81 mg PO DAILY 07/24/18 Atorvastatin [Lipitor] 10 mg ORAL DAILY 07/24/18 Clopidogrel [Plavix] 75 mg ORAL DAILY 07/24/18 Gabapentin [Neurontin] 100 mg PO TID 03/22/21 Insulin NPH Human Isophane [Humulin N Kwikpen] 15 units INJ BID 03/22/21 Metoprolol Succinate [Toprol Xl] 100 mg PO DAILY 03/22/21 amLODIPine [Norvasc] 5 mg PO DAILY 03/22/21
[2021-03-23 17:03] LABS: HCT - HEMATOCRIT 30.3 % (37.0-47.0); HGB - HEMOGLOBIN 10.3 g/dL (12.0-16.0)
[2021-03-23] MEDS ORDERED: SODIUM/POTASSIUM/MAG SULFATES 354 ML PREP KIT PO SCH ×2 (18:00)
[2021-03-23] MEDS ORDERED: traMADol 50 MG TABLET PO PRN (18:32)
[2021-03-23 23:21] LABS: HCT - HEMATOCRIT 27.5 % (37.0-47.0); HGB - HEMOGLOBIN 9.2 g/dL (12.0-16.0)
[2021-03-24] MEDS ORDERED: D5.45NS W/20 MEQ KCL 1,000 ML IV SCH (01:00)
[2021-03-24] MEDS: SODIUM CHLORIDE FLUSH 0.9% 10 ML SYRINGE IVP SCH ×2 (02:29→08:50)
[2021-03-24 06:06] LABS: BASOPHILS % (AUTO) 0.5 %; EOSINOPHILS # (AUTO) 0.3 10^3/uL (0.0-0.7); EOSINOPHILS % (AUTO) 4.5 %; HCT - HEMATOCRIT 28.7 % (37.0-47.0); HGB - HEMOGLOBIN 9.6 g/dL (12.0-16.0); LYMPHOCYTES # (AUTO) 2.1 10^3/uL (1.5-3.5); LYMPHOCYTES % (AUTO) 33.3 %; MEAN CORPUSCULAR HGB CONC 33.4 g/dL (32.0-36.0); MEAN CORPUSCULAR VOLUME 92.6 fL (81.0-99.0); MEAN PLATELET VOLUME 9.7 fL (7.9-10.8); MONOCYTES # (AUTO) 0.7 10^3/uL (0.0-1.0); MONOCYTES % (AUTO) 11.3 %; NEUTROPHILS # (AUTO) 3.1 10^3/uL (1.5-6.6); NEUTROPHILS % (AUTO) 49.9 %; PLT - PLATELET COUNT 243 10^3/uL (130-450); RED CELL DISTRIBUTION WIDTH 13.2 % (12.0-15.0); WHITE BLOOD COUNT 6.2 x10^3/uL (4.8-10.8)
[2021-03-24 06:14] LABS: CALCIUM 8.2 mg/dL (8.5-10.3); CREATININE 0.6 mg/dL (0.4-1.0); POTASSIUM 3.4 mmol/L (3.5-5.0)
[2021-03-24] MEDS: INSULIN ASPART 300 UNIT/3 ML PEN SUBQ SCH ×2 (07:54→12:05)
[2021-03-24] MEDS ORDERED: POTASSIUM CHLORIDE 20 MEQ TABLET PO ONE (08:00)
[2021-03-24] MEDS: PANTOPRAZOLE 40 MG VIAL IVP SCH (08:50)
[2021-03-24 10:21] LABS: HCT - HEMATOCRIT 27.7 % (37.0-47.0); HGB - HEMOGLOBIN 9.4 g/dL (12.0-16.0)
--- NOTE | 2021-03-24 11:23 | PHARMACY PROGRESS NOTE ---
- Best Possible Medication History Admit Date and Time: 03/22/21 1404 Processed by: Pharmacy Medication History completed: Yes Patient Interview: Completed Secondary Source(s): Written medication list (PATIENT'S BROUGHT IN A MEDICATION LIST), Physician records, Pharmacy records As the person ultimately responsible for medication therapy, providers are able to order a medication from an existing home medication list in [facility] via the "Reconcile Routine" prior to Confirmation of that medication by arch support maker. Such practice is discouraged except when the physician, in their clinical judgment, deems that a medical need exists for a medication without regard to previous use.
[2021-03-24] MEDS ORDERED: INSULIN ASPART 300 UNIT/3 ML PEN SUBQ ONE ×2 (11:37→11:41)
[2021-03-24 11:59] LABS: ABSOLUTE RETICS # AUTO 0.139 10^6/uL (0.020-0.110); RED BLOOD COUNT 3.09 10^6/uL (4.20-5.40); RETICULOCYTE COUNT % (AUTO) 4.49 % (0.5-2.3)
[2021-03-24] MEDS ORDERED: ASPIRIN CHEW 81 MG TABLET PO SCH (12:00)
[2021-03-24] MEDS ORDERED: METOPROLOL SUCCINATE 50 MG TABLET PO SCH (12:00)
[2021-03-24] MEDS ORDERED: INSULIN NPH HUMAN 300 UNIT/3 ML VIAL SUBQ SCH (12:00)
[2021-03-24 12:09] VITALS: BP 146/79
[2021-03-24 12:11] LABS: % IRON SATURATION 15 % (20-50); IRON 40 ug/dL (28-170); TOTAL IRON BINDING CAPACITY 259 ug/dL (250-450); TRANSFERRIN 185 mg/dL (192-382)
[2021-03-24 12:26] LABS: FERRITIN 51.5 ng/mL (11.0-306.8)
--- NOTE | 2021-03-24 13:29 | Discharge Plan ---
Discharge Plan Problem Reviewed?: Yes Disposition: Home, Self Care Condition: Fair Prescriptions: Pantoprazole Sodium [Protonix] 20 mg PO DAILY #30 tab Diet: Diabetic Activity Restrictions: Activity as Tolerated Shower Restrictions: No (fall precaution) Instruction Topics: Bleeding Gastrointestinal Health Concerns: GI bleeding Plan of Treatment: Your HGB is stable now. Your bowel movement does not have fresh bloody. It is likely your lower GI bleeding stop by your own. Should your GI bleeding happen again, you may present ER or call 911 for help. Your home Baby aspirin and Plavix are holding for healing of bleeding. You may follow-up your PCP in 1 week to recheck your hemoglobin and to discuss with your PCP or your power equipment mechanics instructor if resuming of your home baby aspirin and Plavix. Care Goals: Stabilization and improvement of your medical conditions Assessment: Discussed the care plan with you, answered your questions, you understood and agreed. Additional Instructions or Follow Up instructions: You may follow-up with your PCP in 1 week to recheck your hemoglobin. Should your symptoms return or worsen, you may present to ER or call 911 for help No Smoking: If you smoke, Please STOP! Call for help. Follow-up with: EMERALD LUGO MD [Primary Care Provider] -
--- NOTE | 2021-03-24 13:39 | DISCHARGE SUMMARY ---
Discharge Summary Admit Date: 03/22/21 Discharge Date: 03/24/21 Discharging Provider: Simone Perikns Primary Care Provider: Elba Pineda Condition at Discharge: Fair Discharge Disposition: 01 Home, Self Care Discharge Facility Name: home - DIAGNOSES Discharge Diagnoses with Status of Each Condition: (1) Lower GI bleed Patient's hemoglobin is stable. Bowel movement does not show fresh bloody. It is likely your lower GI bleeding stop by your own. Should your GI bleeding happen again, you may present ER or call 911 for help. Your home Baby aspirin and Plavix are holding for healing of bleeding. You may follow-up your PCP in 1 week to recheck your hemoglobin and to discuss with your PCP or your cooler servicer if resuming of your home baby aspirin and Plavix. pt had the order for GI surgeon consult, no procedure was done. pt had similar GI bleed on [place] about over one year ago, colonoscopy was done, per pt's report it was unremarkable. it is suspicious diverticulosis is the resource for GI bleeding. (2) Diabetes A1C is 7.2. resume home meds (3) HTN (hypertension) stable (4) HLD (hyperlipidemia) stable - HPI History of Present Illness: This is a 89-years old female with a past medical history significant for hypertension, hyperlipidemia, Diabetes, hyperthyroidism, osteoarthritis, r heumatoid arthritis Who present to ER complain of GI bleeding, and bloody stools. Patient will report from last night she continued to have total about 8 times of bloody stools. stool was dark and reddish. She denies abdominal pain, nausea, vomiting, diarrhea. she denies fainting. But she complaint of lightheaded, dizziness. She had hemoglobin 13.6 on today. Patient reported she had similar symptoms more than a year ago when she was in the [place]. She had a colonoscopy which show polyps. pt denies to take baby aspirin, Plavix. and not on anticoagulation medication. ER already talked with GI surgeon. Given above medical information, pt was consulted with medial team for admission. Discussed the care goal with patient, patient requests full code - ALLERGIES Allergies/Adverse Reactions: Allergies Allergy/AdvReac Type Severity Reaction Status Date / Time No Known Drug Allergies Allergy Verified 03/22/21 10:27 - MEDICATIONS Home Medications: Ambulatory Orders Medication Instructions Recorded Confirmed Cholecalciferol (Vitamin D3) 5,000 unit PO QPM 11/19/13 03/24/21 [Vitamin D3] Atorvastatin [Lipitor] 10 mg ORAL QPM 07/24/18 03/24/21 Gabapentin [Neurontin] 100 mg PO QPM 03/22/21 03/24/21 Insulin NPH Human Isophane 15 units INJ BID 03/22/21 03/24/21 [Humulin N Kwikpen] Metoprolol Succinate [Toprol Xl] 100 mg PO DAILY 03/22/21 03/24/21 amLODIPine [Norvasc] 5 mg PO QPM 03/22/21 03/24/21 Cyanocobalamin (Vitamin B-12) 1,000 mcg PO DAILY 03/23/21 03/24/21 [Vitamin B-12] Pyridoxine [Vitamin B-6] 100 mg PO DAILY 03/23/21 03/24/21 Telmisartan 80 mg PO QPM 03/23/21 03/24/21 Pantoprazole Sodium [Protonix] 20 mg PO DAILY #30 tab 03/24/21 - PHYSICAL EXAM AT DISCHARGE General Appearance: positive: No acute distress, Alert. negative: Lethargic Eyes Bilateral: positive: Normal inspection, PERRL, No lid inflammation ENT: positive: ENT inspection nml, No signs of dehydration. negative: Purulent nasal drainage Neck: positive: Nml inspection, Trachea midline. negative: Thyromegaly, Tracheal deviation Respiratory: positive: Chest non-tender, No respiratory distress, Breath sounds nml. negative: Wheezes, Rales Cardiovascular: positive: Regular rate & rhythm, No murmur. negative: T achycardia, Bradycardia, Systolic murmur, Diastolic murmur Peripheral Pulses: positive: 2+ Abdomen: positive: Non-tender, Nml bowel sounds, No distention. negative: Tenderness, Guarding, Rebound Back: positive: Nml inspection Skin: positive: Color nml, Warm, Dry. negative: Cyanosis Extremities: positive: Non-tender, Full ROM, Nml appearance. negative: Calf tenderness Neurologic/Psychiatric: positive: Oriented x3, Motor nml, Sensation nml, Mood /affect nml. negative: Weakness, Sensory loss, Facial droop, Slurred/abnml speech, Depressed mood/affect - LABS Result Diagrams: 03/24/21 10:11 03/24/21 05:39 - SEPSIS Current Stage of Sepsis: Ruled out - FOLLOW UP Follow Up: Your HGB is stable now. Your bowel movement does not have fresh bloody. It is likely your lower GI bleeding stop by your own. Should your GI bleeding happen again, you may present ER or call 911 for help. Your home Baby aspirin and Plavix are holding for healing of bleeding. You may follow-up your PCP in 1 week to recheck your hemoglobin and to discuss with your PCP or your cooler servicer if resuming of your home baby aspirin and Plavix. You may follow-up with your PCP in 1 week to recheck your hemoglobin. Should your symptoms return or worsen, you may present to ER or call 911 for help - TIME SPENT Time Spent in Discharge (Minutes): 30
[2021-03-24] MEDS ORDERED: ATORVASTATIN 10 MG TABLET PO SCH (21:00)
== END 2021-03-24 14:20 | disposition home or self-care (01) ==
LOC: ED 09:40 → MS2 14:04
PROVIDERS: ADMIT Nurse Practitioner Gerontology; ATTEND Nurse Practitioner Gerontology
DX: K92.2 Gastrointestinal hemorrhage, unspecified (principal); E11.9 Type 2 diabetes mellitus without complications; I10 Essential (primary) hypertension; E78.5 Hyperlipidemia, unspecified; M06.9 Rheumatoid arthritis, unspecified; E05.90 Thyrotoxicosis, unspecified without thyrotoxic crisis or storm; M19.90 Unspecified osteoarthritis, unspecified site; Z20.822 Contact with and (suspected) exposure to COVID-19; Z79.82 Long term (current) use of aspirin; Z79.4 Long term (current) use of insulin; Z79.02 Long term (current) use of antithrombotics/antiplatelets; Z79.899 Other long term (current) drug therapy; Z86.010 Personal history of colon polyps
CPT/HCPCS: 36415; 80048; 80053; 81001; 82607; 82728; 83036; 83540; 83615; 83690; 84466; 85014; 85018; 85025; 85045; 85610; 86850; 86900; 86901; 87631; 96365; 96366; 96375; 96376; 99285; A9270; G0378; J1815; 0202U; 87086

== ENCOUNTER 2021-06-10 15:26 | Emergency (ER) | payer MEDICARE ==
--- NOTE | 2021-06-10 16:50 | ED Physician Documentation ---
History of Present Illness - Stated complaint Stated Complaint: FEMALE GI/ABD PX - Chief complaint Chief Complaint: UTI - Additonal information Additional information: 82-year-old female presented to ED to difficulty urinating started approximately 4 hours ago. Symptoms have since resolved and she is able to urinate without difficulty. She had a brief period of lower back pain has also resolved. No dysuria, no urgency or frequency, no fever chills, no nausea or vomiting. Patient feels symptoms have completely resolved now. Review of Systems Ten Systems: 10 systems reviewed and negative : reports: Hesitancy. denies: Dysuria, Frequency, Unable to Void, Incontinent, Hematuria, Discharge PD PAST MEDICAL HISTORY - Past Medical History Past Medical History: Yes Cardiovascular: Hypertension, High cholesterol Respiratory: None Neuro: None Endocrine/Autoimmune: Type 2 diabetes, HyPERthyroidism GI: None : None HEENT: None Psych: None Musculoskeletal: Osteoarthritis, Rheumatoid arthritis Derm: None - Past Surgical History Past Surgical History: Yes General: Colonoscopy Ortho: Carpal Tunnel surgery, Spine surgery /RISK CONTROL REPRESENTATIVE: Other - Present Medications Home Medications: Ambulatory Orders Medication Instructions Recorded Confirmed Cholecalciferol (Vitamin D3) 5,000 unit PO QPM 11/19/13 03/24/21 [Vitamin D3] Atorvastatin [Lipitor] 10 mg ORAL QPM 07/24/18 03/24/21 Gabapentin [Neurontin] 100 mg PO QPM 03/22/21 03/24/21 Insulin NPH Human Isophane 15 units INJ BID 03/22/21 03/24/21 [Humulin N Kwikpen] Metoprolol Succinate [Toprol Xl] 100 mg PO DAILY 03/22/21 03/24/21 amLODIPine [Norvasc] 5 mg PO QPM 03/22/21 03/24/21 Cyanocobalamin (Vitamin B-12) 1,000 mcg PO DAILY 03/23/21 03/24/21 [Vitamin B-12] Pyridoxine [Vitamin B-6] 100 mg PO DAILY 03/23/21 03/24/21 Telmisartan 80 mg PO QPM 03/23/21 03/24/21 Pantoprazole Sodium [Protonix] 20 mg PO DAILY #30 tab 03/24/21 - Allergies Allergies/Adverse Reactions: Allergies Allergy/AdvReac Type Severity Reaction Status Date / Time No Known Drug Allergies Allergy Verified 06/10/21 15:36 - Social History Does the pt smoke?: No Smoking Status: Never smoker Does the pt drink ETOH?: No Does the pt have substance abuse?: No - Immunizations Immunizations are current?: Yes - POLST Patient has POLST: No PD ED PE NORMAL - Vitals Vital signs reviewed: Yes - General General: Alert and oriented X 3, No acute distress, Well developed/nourished - HEENT HEENT: Atraumatic, Moist mucous membranes - Cardiac Cardiac: RRR, No murmur - Respiratory Respiratory: No respiratory distress, Clear bilaterally - Abdomen Abdomen: Normal bowel sounds, Soft, Non tender, Non distended - Back Back: No CVA TTP - Derm Derm: Normal color, Warm and dry, No rash - Neuro Neuro: Alert and oriented X 3 Eye Opening: Spontaneous Motor: Obeys Commands Verbal: Oriented GCS Score: 15 Results - Vitals Vitals: Vital Signs - 24 hr 06/10/21 06/10/21 15:32 18:00 Temperature 36.9 C Heart Rate 80 78 Respiratory 18 18 Rate Blood Pressure 126/78 184/84 H O2 Saturation 93 95 Oxygen O2 Source Room air - Labs Labs: Laboratory Tests 06/10/21 17:09 Urine Color YELLOW Urine Clarity SL. CLOUDY Urine pH 6.0 Ur Specific [place] 1.015 Urine Protein NEGATIVE Urine Glucose (UA) NEGATIVE Urine Ketones TRACE Urine Occult Blood NEGATIVE Urine Nitrite NEGATIVE Urine Bilirubin NEGATIVE Urine Urobilinogen 2 H Ur Leukocyte Esterase NEGATIVE Urine RBC 0-5 Urine WBC 0-3 Ur Squamous Epith Cells MANY Squamous H Urine Bacteria None Seen Ur Microscopic Review INDICATED Urine Culture Comments NOT INDICATED PD MEDICAL DECISION MAKING - ED course Complexity details: reviewed results, d/w patient ED course: Patient presented with difficulty with urination for the last several hours though it had resolved by the time I saw her. She had just voided prior to my evaluation and patient said it was without difficulty. Her UA is reassuring, no signs of infection. Possible she had a small stone which she passed for some bladder spasms indicates she is feeling well now. Do not see indication for antibiotics or other treatment at this time. Patient advised to stay well- hydrated, avoid caffeine and other bladder stimulants. Reviewed return p recautions if she were to develop fever, chills, nausea or vomiting, recurrent urinary symptoms. Departure - Departure Disposition: 01 Home, Self Care Clinical Impression: Urinary hesitancy Condition: Good Comments: You presented with some difficulty passing urine. We did a urinalysis which was reassuring and not suggestive of infection. Initially had some back pain but this has resolved. It is possible that you passed a small stone but you no long er have pain so I do not think a CT scan is indicated at this time. You are now passing urine without difficulty. Please stay well-hydrated and return if you develop new symptoms such as flank pain, pain when you urinate, fever, nausea or vomiting or other new concerns. Discharge Date/Time: 06/10/21 18:01
[2021-06-10 17:32] LABS: BILIRUBIN,URINE NEGATIVE (NEGATIVE); GLUCOSE, URINE (UA) NEGATIVE (NEGATIVE); KETONES,URINE (UA) TRACE mg/dL (NEGATIVE); LEUKOCYTE ESTERASE, URINE NEGATIVE (NEGATIVE); NITRITE,URINE NEGATIVE (NEGATIVE); OCCULT BLOOD,URINE NEGATIVE (NEGATIVE); PROTEIN,URINE NEGATIVE (NEGATIVE); UROBILINOGEN,URINE 2 E.U./dL (NORMAL)
[2021-06-10 17:33] LABS: CLARITY,URINE SL. CLOUDY (CLEAR)
[2021-06-10 18:00] LABS: BACTERIA,URINE None Seen /HPF (None Seen); RBC,URINE 0-5 /HPF (0-5); SQUAMOUS EPITHELIAL CELL,UR MANY Squamous (<= Few); WBC,URINE 0-3 /HPF (0-5)
[2021-06-10 18:01] VITALS: BP 184/84
== END 2021-06-10 18:01 | disposition home or self-care (01) ==
LOC: ED 15:26
DX: R39.11 Hesitancy of micturition (principal); I10 Essential (primary) hypertension; E78.00 Pure hypercholesterolemia, unspecified; E11.9 Type 2 diabetes mellitus without complications; M06.9 Rheumatoid arthritis, unspecified; M19.90 Unspecified osteoarthritis, unspecified site; Z79.4 Long term (current) use of insulin; Z79.899 Other long term (current) drug therapy
CPT/HCPCS: 81001; 81003; 87086; 99283

== ENCOUNTER 2022-02-20 03:23 | Emergency (ER) | payer MEDICARE ==
--- NOTE | 2022-02-20 03:47 | ED Physician Documentation ---
PD HPI CHEST PAIN - Stated complaint Stated Complaint: CP - Chief complaint Chief Complaint: Cardiac - History obtained from History obtained from: Patient - History of Present Illness Timing - onset: Today Timing - details: Gradual onset, Intermittant Pain level max: 4 Pain level now: 0 Quality: Pain Location: Substernal, Left chest Improved by: Nothing Worsened by: Other (no exacerbating factors) Associated symptoms: Shortness of air. No: Diaphoresis, Nausea, Vomiting, Feeling faint / dizzy, General Weakness, Palpitations, Cough Similar symptoms before: Has not had sx before Recently seen: Not recently seen - Additional information Additional information: c/o intermittent left chest pain x few days. Left chest wall rash noted earlier today. Review of Systems Constitutional: reports: Reviewed and negative Cardiac: reports: Chest pain / pressure. denies: Palpitations, Pedal edema, Calf pain Respiratory: reports: Dyspnea. 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 - Present Medications Home Medications: Ambulatory Orders Medication Instructions Recorded Confirmed Cholecalciferol (Vitamin D3) 5,000 unit PO QPM 11/19/13 02/20/22 [Vitamin D3] Atorvastatin [Lipitor] 10 mg ORAL QPM 07/24/18 02/20/22 Gabapentin [Neurontin] 100 mg PO QPM 03/22/21 02/20/22 Insulin NPH Human Isophane 15 units INJ BID 03/22/21 02/20/22 [Humulin N Kwikpen] Metoprolol Succinate [Toprol Xl] 100 mg PO DAILY 03/22/21 02/20/22 amLODIPine [Norvasc] 5 mg PO QPM 03/22/21 02/20/22 Cyanocobalamin (Vitamin B-12) 1,000 mcg PO DAILY 03/23/21 02/20/22 [Vitamin B-12] Pyridoxine [Vitamin B-6] 100 mg PO DAILY 03/23/21 02/20/22 Telmisartan 80 mg PO QPM 03/23/21 02/20/22 Pantoprazole Sodium [Protonix] 20 mg PO DAILY #30 tab 03/24/21 02/20/22 Valacyclovir HCl [Valtrex] 1,000 mg PO TID #14 tablet 02/20/22 cephALEXin [Keflex] 500 mg PO Q6H #20 cap 02/20/22 - Allergies Allergies/Adverse Reactions: Allergies Allergy/AdvReac Type Severity Reaction Status Date / Time No Known Drug Allergies Allergy Verified 02/20/22 03:34 - Social History Does the pt smoke?: No Smoking Status: Never smoker Does the pt drink ETOH?: No Does the pt have substance abuse?: No - Immunizations Immunizations are current?: Yes - POLST Patient has POLST: No PD ED PE NORMAL - Vitals Vital signs reviewed: Yes - General General: Alert and oriented X 3, No acute distress, Well developed/nourished - Neck Neck: Supple, no meningeal sign - Cardiac Cardiac: RRR, No murmur, No gallop, No rub - Respiratory Respiratory: No respiratory distress, Clear bilaterally - Abdomen Abdomen: Non tender PD ED PE EXPANDED - Derm Derm: Other (exanthem that extends from left of midline anterior chest wall around left chest to midline upper thoracic area in dermatomal distribution) Results - Vitals Vitals: Oxygen O2 Source Room air - EKG (time done) No standard instances Rate: Rate (enter#) (63) Rhythm: NSR [place]: LAD Intervals: Normal ME QRS: Normal Ischemia: Normal ST segments, Q waves (V2, V3, III, aVF) - Labs Labs: Laboratory Tests 02/20/22 02/20/22 02/20/22 03:43 03:43 03:43 WBC 8.8 RBC 5.36 Hgb 16.2 H Hct 46.4 MCV 86.6 MCH 30.2 MCHC 34.9 RDW 12.3 Plt Count 287 MPV 10.3 Neut # (Auto) 5.3 Lymph # (Auto) 2.3 Miner # (Auto) 1.0 Eos # (Auto) 0.1 Baso # (Auto) 0.0 Absolute Nucleated RBC 0.00 Nucleated RBC % 0.0 Sodium 131 L Potassium 3.0 L Chloride 94 L Carbon Dioxide 27 Anion Gap 10.0 BUN 16 Creatinine 0.8 Estimated GFR (MDRD) 68 L Glucose 281 H Calcium 9.3 Total Bilirubin 2.2 H AST 17 ALT 13 Alkaline Phosphatase 85 Troponin I High Sens 15.5 H* Total Protein 7.1 Albumin 3.3 Globulin 3.8 Albumin/Globulin Ratio 0.9 L Lipase 29 - Rads (name of study) chest xray Radiology: Prelim report reviewed, See rad report PD MEDICAL DECISION MAKING - ED course Complexity details: reviewed results, re-evaluated patient, considered differential, d/w patient ED course: c/o chest pain with mild ZAMORA x 2-3 days. exam reveals exanthem with appearance and distribution strongly c/w herpes zoster/shingles. She says she just noticed rash today although the rash appears several days old based on lack of vesicular lesions and many ulcerated lesions. Unremarkable EKG and CXR. Blood test abnormalities are non-contributory and not of emergent concern (hypokalemia (3.0), hyperglycemia although patient is diabetic (281 blood sugar), minimally elevated hs-cTn (15.5), hyperbilirubinemia (2.2)). The most logical explanation for her chest pain is shingles and she is prescribed valacyclovir. She is advised of test results and I instructed her to follow up with her primary care provider for reevaluation. Return precautions discussed Departure - Departure Disposition: 01 Home, Self Care Clinical Impression: Shingles Qualifiers: Herpes zoster complications: without complications Qualified Code(s): B02.9 - Zoster without complications Condition: Good Instructions: ED Shingles Prescriptions: cephALEXin [Keflex] 500 mg PO Q6H #20 cap Valacyclovir HCl [Valtrex] 1,000 mg PO TID #14 tablet Comments: The rash on your back and chest is due to shingles. I have prescribed an anti- viral medication (valacycolvir) for this. I have also prescribed an antibiotic (cephalexin), as some of the rash looks like it has become infected with bacteria. Your blood tests did not have any particularly concerning findings, although your potassium was slightly low and your blood sugar was high (280). You should follow up with your primary care provider, next available appointment; they might recommend repeating some of these tests. Discharge Date/Time: 02/20/22 06:04
[2022-02-20 03:48] LABS: BASOPHILS % (AUTO) 0.3 %; EOSINOPHILS # (AUTO) 0.1 10^3/uL (0.0-0.7); EOSINOPHILS % (AUTO) 0.9 %; HCT - HEMATOCRIT 46.4 % (37.0-47.0); HGB - HEMOGLOBIN 16.2 g/dL (12.0-16.0); LYMPHOCYTES # (AUTO) 2.3 10^3/uL (1.5-3.5); LYMPHOCYTES % (AUTO) 25.9 %; MEAN CORPUSCULAR HEMOGLOBIN 30.2 pg (27.0-31.0); MEAN CORPUSCULAR HGB CONC 34.9 g/dL (32.0-36.0); MEAN CORPUSCULAR VOLUME 86.6 fL (81.0-99.0); MEAN PLATELET VOLUME 10.3 fL (7.9-10.8); MONOCYTES % (AUTO) 11.8 %; NEUTROPHILS # (AUTO) 5.3 10^3/uL (1.5-6.6); NEUTROPHILS % (AUTO) 60.8 %; PLT - PLATELET COUNT 287 10^3/uL (130-450); RED BLOOD COUNT 5.36 10^6/uL (4.20-5.40); RED CELL DISTRIBUTION WIDTH 12.3 % (12.0-15.0); WHITE BLOOD COUNT 8.8 x10^3/uL (4.8-10.8)
[2022-02-20 04:01] LABS: ALBUMIN 3.3 g/dL (3.2-5.5); ALBUMIN/GLOBULIN RATIO 0.9 (1.0-2.2); BILIRUBIN,TOTAL 2.2 mg/dL (0.2-1.0); CALCIUM 9.3 mg/dL (8.5-10.3); CREATININE 0.8 mg/dL (0.4-1.0); TOTAL PROTEIN 7.1 g/dL (6.7-8.2)
[2022-02-20] MEDS ORDERED: valACYclovir 500 MG TABLET PO STA (05:15)
[2022-02-20] MEDS ORDERED: cephALEXin 250 MG CAPSULE PO STA (05:16)
[2022-02-20 06:05] VITALS: BP 163/80
--- NOTE | 2022-02-20 07:52 | XRAY Report ---
PROCEDURE: Chest 1 View X-Ray INDICATIONS: Chest pain COMMENTS: WOKE WITH MID UPPER CHEST PAIN 0200. PATIENT REPORTS PAIN WRA PPING AROUND TO THE BACK. CHEST RASH. SHORT OF BREATH ON EXERTION. PRIORS: NONE TECHNIQUE: One view of the chest was acquired. COMPARISON: FINDINGS: Surgical changes and devices: Postoperative changes of the cervical spine. Lungs and pleura: No pleural effusions or pneumothorax. Lungs are clear. Mediastinum: Mediastinal contours appear normal. Heart size is enlarged. The aorta is tortuous. Bones and chest wall: No suspicious bony lesions. Overlying soft tissues appear unremarkable. IMPRESSION: 1. Cardiomegaly. 2. No acute abnormality. Findings above correspond with preliminary findings by [facility]. Reviewed by: King Bae on 02/20/2022 6:51 AM CHAVA Approved by: King Bae on 02/20/2022 6:51 AM CHAVA Station ID: [id number]
== END 2022-02-20 06:04 | disposition home or self-care (01) ==
LOC: ED 03:23
DX: B02.9 Zoster without complications (principal)
CPT/HCPCS: 36415; 71045; 80053; 83690; 84484; 85025; 99284; A9270

== ENCOUNTER 2022-07-08 13:40 | Emergency (ER) | payer MEDICARE ==
[2022-07-08] MEDS ORDERED: oxyCODONE 5 MG TABLET PO STA (15:04)
--- NOTE | 2022-07-08 15:06 | ED Physician Documentation ---
History of Present Illness - Stated complaint Stated Complaint: FALL LT SIDE PX - Chief complaint Chief Complaint: General - History obtained from History obtained from: Patient, Family - History of Present Illness Timing: Last night Pain level max: 6 Pain level now: 5 - Additonal information Additional information: Patient is a 89-year-old female who presents to the emergency department stating that she fell yesterday at home, landing on her buttock and left side. She states that today she has had increasing pain in the left flank and in her back. No loss of bowel or bladder control. She ambulates with a walker. Did not strike her head. Worse with movement, better with rest. Took an Aleve without relief. No loss of consciousness. She is not on blood thinners. 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 - Present Medications Home Medications: Ambulatory Orders Medication Instructions Recorded Confirmed Cholecalciferol (Vitamin D3) 5,000 unit PO QPM 11/19/13 02/26/22 [Vitamin D3] Atorvastatin [Lipitor] 10 mg ORAL QPM 07/24/18 02/26/22 Gabapentin [Neurontin] 100 mg PO QPM 03/22/21 02/26/22 Insulin NPH Human Isophane 15 units INJ BID 03/22/21 02/26/22 [Humulin N Kwikpen] Metoprolol Succinate [Toprol Xl] 100 mg PO DAILY 03/22/21 02/26/22 amLODIPine [Norvasc] 5 mg PO QPM 03/22/21 02/26/22 Cyanocobalamin (Vitamin B-12) 1,000 mcg PO DAILY 03/23/21 02/26/22 [Vitamin B-12] Pyridoxine [Vitamin B-6] 100 mg PO DAILY 03/23/21 02/26/22 Telmisartan 80 mg PO QPM 03/23/21 02/26/22 Pantoprazole Sodium [Protonix] 20 mg PO DAILY #30 tab 03/24/21 02/26/22 Valacyclovir HCl [Valtrex] 1,000 mg PO TID #14 tablet 02/20/22 02/26/22 cephALEXin [Keflex] 500 mg PO Q6H #20 cap 02/20/22 02/26/22 Oxycodone HCl [Roxicodone] 5 mg PO Q6H PRN #14 tablet 07/08/22 - Allergies Allergies/Adverse Reactions: Allergies Allergy/AdvReac Type Severity Reaction Status Date / Time No Known Drug Allergies Allergy Verified 07/08/22 14:07 - Social History Does the pt smoke?: No Smoking Status: Never smoker Does the pt drink ETOH?: No Does the pt have substance abuse?: No - Immunizations Immunizations are current?: Yes - POLST Patient has POLST: No PD ED PE NORMAL - Vitals Vital signs reviewed: Yes - General General: Alert and oriented X 3, No acute distress - HEENT HEENT: Atraumatic, PERRL, Moist mucous membranes - Neck Neck: Supple, no meningeal sign, No bony TTP - Cardiac Cardiac: RRR - Respiratory Respiratory: No respiratory distress, Clear bilaterally - Abdomen Abdomen: Soft, Non tender, Non distended - Back Back: Other (mild mid L spine TTP. no deformity or step off. L CVAT.) - Derm Derm: Warm and dry - Neuro Neuro: Alert and oriented X 3 - Psych Psych: Normal mood, Normal affect Results - Vitals Vitals: Vital Signs - 24 hr 07/08/22 07/08/22 07/08/22 13:56 14:07 16:07 Temperature 37.2 C 37.2 C Heart Rate 78 78 69 Respiratory 16 16 18 Rate Blood Pressure 177/109 H 177/109 H 200/96 H O2 Saturation 97 97 96 Oxygen O2 Source Room air - Labs Labs: Laboratory Tests 07/08/22 07/08/22 07/08/22 15:20 15:20 16:45 WBC 9.6 RBC 5.07 Hgb 15.0 Hct 44.8 MCV 88.4 MCH 29.6 MCHC 33.5 RDW 13.1 Plt Count 326 MPV 9.7 Neut # (Auto) 7.0 H Lymph # (Auto) 1.5 Jackson # (Auto) 0.9 Eos # (Auto) 0.1 Baso # (Auto) 0.0 Absolute Nucleated RBC 0.00 Nucleated RBC % 0.0 Sodium 136 Potassium 3.5 Chloride 96 L Carbon Dioxide 29 Anion Gap 11.0 BUN 21 H Creatinine 0.8 Estimated GFR (MDRD) 68 L Glucose 157 H Calcium 9.4 Total Bilirubin 0.8 AST 18 ALT 16 Alkaline Phosphatase 70 Total Protein 6.5 L Albumin 3.4 Globulin 3.1 Albumin/Globulin Ratio 1.1 Lipase 30 Urine Color YELLOW Urine Clarity CLEAR Urine pH 6.5 Ur Specific Catarina <=1.005 Urine Protein NEGATIVE Urine Glucose (UA) NEGATIVE Urine Ketones NEGATIVE Urine Occult Blood NEGATIVE Urine Nitrite NEGATIVE Urine Bilirubin NEGATIVE Urine Urobilinogen 0.2 (NORMAL) Ur Leukocyte Esterase NEGATIVE Ur Microscopic Review NOT INDICATED Urine Culture Comments NOT INDICATED - Rads (name of study) CT chest Radiology: Final report received, EMP read contemporaneously, See rad report CT abdomen pelvis Radiology: Final report received, EMP read contemporaneously, See rad report PD MEDICAL DECISION MAKING - ED course Complexity details: reviewed results, re-evaluated patient, considered differential, d/w patient, d/w family ED course: Patient has a left posterior 11th rib fracture. No pneumothorax. No hemothorax. Pain well controlled. No other acute findings on CT scan. Ambulated without difficulty. No hypoxia. No respiratory distress. Will prescribe pain medication for home and have her follow-up with her doctor. Patient counseled regarding signs and symptoms for which I believe and urgent re-evaluation would be necessary. Patient with good understanding of and agreement to plan and is comfortable going home at this time This document was made in part using voice recognition software. While efforts are made to proofread this document, sound alike and grammatical errors may occur. Departure - Departure Disposition: 01 Home, Self Care Clinical Impression: Rib fracture Qualifiers: Encounter type: initial encounter Rib fracture type: single rib Fracture type: closed Laterality: left Qualified Code(s): S22.32XA - Fracture of one rib, left side, initial encounter for closed fracture Condition: Good Instructions: ED Fx Rib Follow-Up: EMERALD LUGO MD [Primary Care Provider] - Within 1 week Prescriptions: Oxycodone HCl [Roxicodone] 5 mg PO Q6H PRN #14 tablet PRN Reason: Pain Comments: Your prescription was sent to [facility] in [place]. Please follow-up with your doctor for further care. Return if you worsen. You do have a fractured left 11th rib. This will take several weeks to heal. I am prescribing a short course of narcotic pain medication for you. These are potentially dangerous and addictive medications that should be used carefully. These medications may constipate you. Take an adqn-pwj-zgmkdrs stool softener (docusate) twice daily with plenty of water while taking these medications. If you go 24 hours without a bowel movement, take mjub-ssw-[id number] miralax, per package instructions. Do not drink or drive while taking these medications. If you received narcotic or sedating medications while in the emergency department, do not drive for 24 hours. Store this medication in a safe, secure place and out of reach of children. It is a violation of federal law to give or sell this medication to another person or to use in a manner other than prescribed. The ED will not refill narcotic prescriptions, including prescriptions lost or stolen. To dispose of unwanted medications: 1. [facility] at [address] in [place] has a medication drop box. They accept prescription medications (in pill form) Sunday through Sunday 9:00 a.m. to 5:00 p.m. 2. The [facility] [employer] accepts prescription medications (in pill form only) for disposal year round. Call for more information. 3. Contact the [facility] for the next [facility] sponsored prescription drug collection event. , [phone], or [phone]; Discharge Date/Time: 07/08/22 17:15
[2022-07-08] MEDS ORDERED: iohexoL-300 100 ML VIAL ONE (15:18)
[2022-07-08 15:24] LABS: BASOPHILS % (AUTO) 0.2 %; EOSINOPHILS # (AUTO) 0.1 10^3/uL (0.0-0.7); EOSINOPHILS % (AUTO) 0.6 %; HCT - HEMATOCRIT 44.8 % (37.0-47.0); LYMPHOCYTES # (AUTO) 1.5 10^3/uL (1.5-3.5); LYMPHOCYTES % (AUTO) 15.8 %; MEAN CORPUSCULAR HEMOGLOBIN 29.6 pg (27.0-31.0); MEAN CORPUSCULAR HGB CONC 33.5 g/dL (32.0-36.0); MEAN CORPUSCULAR VOLUME 88.4 fL (81.0-99.0); MEAN PLATELET VOLUME 9.7 fL (7.9-10.8); MONOCYTES # (AUTO) 0.9 10^3/uL (0.0-1.0); MONOCYTES % (AUTO) 9.8 %; NEUTROPHILS % (AUTO) 73.3 %; PLT - PLATELET COUNT 326 10^3/uL (130-450); RED BLOOD COUNT 5.07 10^6/uL (4.20-5.40); RED CELL DISTRIBUTION WIDTH 13.1 % (12.0-15.0); WHITE BLOOD COUNT 9.6 x10^3/uL (4.8-10.8)
[2022-07-08 15:40] LABS: ALBUMIN 3.4 g/dL (3.2-5.5); ALBUMIN/GLOBULIN RATIO 1.1 (1.0-2.2); BILIRUBIN,TOTAL 0.8 mg/dL (0.2-1.0); CALCIUM 9.4 mg/dL (8.5-10.3); CREATININE 0.8 mg/dL (0.4-1.0); POTASSIUM 3.5 mmol/L (3.5-5.0); TOTAL PROTEIN 6.5 g/dL (6.7-8.2)
[2022-07-08] MEDS ORDERED: iohexoL-300 100 ML VIAL IVP ONE (16:08)
[2022-07-08 16:25] VITALS: BP 200/96
--- NOTE | 2022-07-08 16:30 | CT Report ---
PROCEDURE: CT chest with contrast INDICATIONS: LT RIB PAIN S/P FALL CONTRAST:100ml omni 300 TECHNIQUE: After the administration of intravenous contrast, 1 mm axial images were acquired from the pulmonary apices through the posterior costophrenic angles. Axial 5 mm soft tissue kernel reconstructions were performed as well as 8 mm axial MIP and coronal and sagittal 5 mm reformations. For radiation dose reduction, the following was used: automated exposure control, adjustment of mA and/or kV according to patient size. COMPARISON: None. FINDINGS: Image quality: Excellent. Lungs and pleura: No acute air space opacities. No pleural effusions or pneumothorax. Central and peripheral airways are patent and normal in caliber. Mediastinum: No pericardial effusion. No mediastinal or hilar adenopathy by size criteria. Thoraci c aorta and central pulmonary arteries are normal in size. Esophagus is normal in caliber. No hiata l hernia. Vessels are quite tortuous. Carotid vessels are medialized in the retropharyngeal space. A therosclerotic calcification aortic arch. Dense coronary artery vascular calcification present. Heart size is enlarged. Bones and chest wall: Bilateral degenerative disc disease and arthropathy noted in the cervicothoraci c spine. Bilateral glenohumeral joint space narrowing. Slight loose bodies noted on the left associat ed bilateral humeral joint effusions. Wedge-shaped L1 compression fracture. Minimally displaced posterior left 11th rib fracture. No pneumothorax. IMPRESSION: 1. Minimally displaced left posterior 11th rib fracture. No pneumothorax. 2. L1 compression fracture, stable from 02/26/2022 3. Cardiomegaly. Additional chronic changes as detailed above Reviewed by: Cam Mcintosh MD on 07/08/2022 3:29 PM AK Approved by: Cam Mcintosh MD on 07/08/2022 3:29 PM AK Station ID: [id number]
--- NOTE | 2022-07-08 16:42 | CT Report ---
PROCEDURE: Macro CT abdomen and pelvis INDICATIONS: L flank pain s/p fall CONTRAST: 100ml omni 300 TECHNIQUE: After the administration of contrast, 5 mm thick sections acquired from the diaphragms to the sym physis. 5 mm thick coronal and sagittal reformats were acquired. For radiation dose reduction, the following was used: automated exposure control, adjustment of mA and/or kV according to patient size . COMPARISON: 02/26/2022 FINDINGS: Image quality: Excellent. ABDOMEN: Lung bases: Lung bases are clear. Heart size is normal. The 11th left rib fracture again noted Solid organs: Liver and spleen are normal in size and enhancement. Gallbladder cholelithiasis witho ut pericholecystic inflammatory change Biliary system is non dilated. Pancreas enhances normally. No adrenal nodules. Kidneys demonstrate normal size and enhancement, without hydronephrosis. Bilateral renal simple cysts. Peritoneum and bowel: Bowel loops demonstrate normal wall thickness and caliber. No free fluid or a ir. Moderate to fecal debris throughout the colon. Multiple diverticuli impression the sigmoid colon without evidence of diverticulitis Nodes and vessels: No retroperitoneal or mesenteric adenopathy by size criteria. Aorta and inferior vena cava are normal in size. Atherosclerotic calcification of the abdominal aorta without evidence of aneurysm. Miscellaneous: Small periumbilical ventral hernia contains fat without bowel involvement. Left inguin al hernia noted as well PELVIS: Genitourinary: Bladder wall thickness is normal. Miscellaneous: No inguinal hernias or adenopathy. Bones: No suspicious bony lesions. No vertebral body compression fractures. Degenerative disc dise ase and arthropathy lower lumbar spine. L1 no wedge-shaped compression fracture with minimal retrolis thesis remains unchanged in prior. Anterior listhesis at L4-5 and also stable. IMPRESSION: Left posterior 11th rib fracture without pneumothorax. Chronic findings as stable from the prior Reviewed by: Cam Mcintosh MD on 07/08/2022 3:41 PM AKST Approved by: Cam Mcintosh MD on 07/08/2022 3:41 PM AKST Station ID: [id number]
[2022-07-08 17:00] LABS: BILIRUBIN,URINE NEGATIVE (NEGATIVE); GLUCOSE, URINE (UA) NEGATIVE (NEGATIVE); KETONES,URINE (UA) NEGATIVE (NEGATIVE); LEUKOCYTE ESTERASE, URINE NEGATIVE (NEGATIVE); NITRITE,URINE NEGATIVE (NEGATIVE); OCCULT BLOOD,URINE NEGATIVE (NEGATIVE); PH,URINE 6.5 PH (5.0-7.5); PROTEIN,URINE NEGATIVE (NEGATIVE); UROBILINOGEN,URINE 0.2 (NORMAL) E.U./dL (NORMAL)
[2022-07-08 17:02] LABS: CLARITY,URINE CLEAR (CLEAR)
== END 2022-07-08 17:15 | disposition home or self-care (01) ==
LOC: ED 13:40
DX: S22.32XA Fracture of one rib, left side, initial encounter for closed fracture (principal); W19.XXXA Unspecified fall, initial encounter; I10 Essential (primary) hypertension; E11.9 Type 2 diabetes mellitus without complications; Z79.4 Long term (current) use of insulin
CPT/HCPCS: 36415; 71260; 74177; 80053; 81003; 83690; 85025; 99284; A9270; Q9967; 81001; 87086

== ENCOUNTER 2022-09-14 08:07 | Outpatient (CLI) | payer MEDICARE ==
--- NOTE | 2022-09-15 12:02 | Ultrasound Report ---
LIMITED ULTRASOUND OF LEFT BREAST: 09/14/2022 CLINICAL: Palpable left breast lump. Comparison is made to exams dated: 09/14/2022 mammogram, 09/28/2020 mammogram, 07/09/2019 mammogram, mammogram, 08/15/2017 mammogram, and 01/22/2017 mammogram - [facility]. Color flow and real-time ultrasound of the left breast 2 o'clock region were performed. Goss scale images of the real-time examination were reviewed. IMPRESSION: NEGATIVE There is no sonographic evidence of malignancy. There is no abnormality seen in the left breast to correspond with the area of clinical concern at 2 o'clock, however, clinical correlation and clinical followup are recommended. Patient was also advised to return for reimaging if there are anything clinical changes to the surgic al site in the right breast. Return to annual mammogram screening schedule is recommended. This exam was interpreted at Station ID: [id number]. Electronically Signed By: Aldo Michel M.D. lc/:09/14/2022 09:32:50 Ultrasound BI-RADS: 1 Negative BI-RADS CATEGORY: (1) - 1 RECOMMENDATION: (ANNUAL) - Recommend routine annual screening mammography. [id number] return to screening LATERALITY: (B)
--- NOTE | 2022-09-15 12:02 | Mammography Report ---
BILATERAL DIGITAL DIAGNOSTIC MAMMOGRAM 3D/2D WITH SPOT COMPRESSION: 09/14/2022 CLINICAL: Palpable left breast lump. Due for bilateral imaging. Personal history of right breast canc er. Comparison is made to exams dated: 09/28/2020 mammogram, 07/09/2019 mammogram, 07/03/2018 mammogram, 1 10/16/2016 mammogram, and 01/22/2017 mammogram - [facility]. Both breasts are heterogeneously dense, which may obscure small masses (category c / 51-75% glandular tissue). There is a benign dystrophic calcification in the right breast at 11 o'clock posterior depth. This i s more prominent. There are surgical clips and a post-surgical scar associated with the calcificatio n. No other significant masses, calcifications, or other findings are seen in either breast. IMPRESSION: INCOMPLETE: NEEDS ADDITIONAL IMAGING EVALUATION There is no abnormality seen in the left breast to correspond with the area of clinical concern at 2 o'clock, however, ultrasound is recommended. This exam was interpreted at Station ID: [id number]. NOTE: For mammograms, a report in lay terms will be sent to the patient. Approximately 15% of breast malignancies will not be visualized mammographically. In the management of a palpable breast mass, a negative mammogram must not discourage biopsy of a clinically suspicious lesion. Electronically Signed By: Aldo Michel M.D. lc/:09/14/2022 09:30:39 ACR BI-RADS Category 0: Incomplete 3340F PARENCHYMAL PATTERN: (D) - The breast(s) demonstrate(s) heterogeneously dense fibroglandular erika palomo. BI-RADS CATEGORY: (0) - 0 Ultrasound [id number] Immediate follow-up LATERALITY: (B)
== END 2022-09-14 08:08 | disposition home or self-care (01) ==
LOC: DI 08:07
PROVIDERS: ATTEND Physician Assistant
DX: N63.21 Unspecified lump in the left breast, upper outer quadrant (principal); Z85.3 Personal history of malignant neoplasm of breast

== ENCOUNTER 2022-09-28 12:19 | Outpatient (CLI) | payer MEDICARE ==
--- NOTE | 2022-09-28 18:24 | XRAY Report ---
PROCEDURE: Lumbar Spine 2 View INDICATIONS: LOW BACK PAIN TECHNIQUE: 2 views of the lumbar spine were acquired. COMPARISON: CT abdomen pelvis 07/08/2022 FINDINGS: Bones: Generalized decreased osseous mineralization present. Wedge-shaped L1 compression fracture not ed, similar prior. Degenerative disc disease and arthropathy results in grade 1 anterior spinal listh esis at L5-S1. Soft tissues: Overlying bowel gas pattern is normal. Atherosclerotic calcification of the abdominal aorta and coronary vessels without evidence of aneurysm. . 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
--- NOTE | 2022-09-28 18:47 | XRAY Report ---
PROCEDURE: Pelvis 1 View INDICATIONS: PAIN IN PELVIS TECHNIQUE: 1 view(s) of the pelvis acquired. COMPARISON: None. FINDINGS: Bones: Pelvic ring intact. Mild bilateral acetabular joint space narrowing. Degenerative changes note d in the lower lumbar spine Atherosclerotic vascular calcification. Soft tissues: Visualized bowel gas pattern is normal. No suspicious soft tissue calcifications. IMPRESSION: Mild bilateral hip joint space narrowing and degenerative changes in lower lumbar spine Reviewed by: Cam Mcintosh MD on 09/28/2022 5:46 PM AKST Approved by: Cam Mcintosh MD on 09/28/2022 5:46 PM AKST Station ID: [id number]
== END 2022-09-28 12:20 | disposition home or self-care (01) ==
LOC: DI.S 12:19
PROVIDERS: ATTEND Physician Assistant
DX: M16.0 Bilateral primary osteoarthritis of hip (principal); M47.816 Spondylosis without myelopathy or radiculopathy, lumbar region; M51.36 Other intervertebral disc degeneration, lumbar region; M43.17 Spondylolisthesis, lumbosacral region; M48.56XA Collapsed vertebra, not elsewhere classified, lumbar region, initial encounter for fracture